=== PATIENT | female | born 1970 | race Caucasian/White ===

== ENCOUNTER → 2020-11-19 | Day surgery (SDC) | payer BC ==
[~2020-11-19] MED LIST: DEPO; LOSARTAN POTASS25 MG PO; NOVOLOG100 UNIT/1 SC; OR PHACO EYE KIT ONE; PREOP PHACO EYE KIT ONE
[2020-11-19 12:13] VITALS: BP 126/61
== END | disposition home or self-care (01) ==
LOC: OR 09:17
PROVIDERS: ATTEND Ophthalmology
DX: H25.11 Age-related nuclear cataract, right eye (principal); E10.39 Type 1 diabetes mellitus with other diabetic ophthalmic complication; Z79.4 Long term (current) use of insulin; Z83.3 Family history of diabetes mellitus; Z01.812 Encounter for preprocedural laboratory examination; Z20.822 Contact with and (suspected) exposure to COVID-19
CPT/HCPCS: 36415; 66984; 82948; U0002; V2632

== ENCOUNTER → 2020-12-17 | Day surgery (SDC) | payer BC ==
[2020-12-17 11:20] VITALS: BP 132/65
== END | disposition home or self-care (01) ==
LOC: OR 08:33
PROVIDERS: ATTEND Ophthalmology
DX: H25.12 Age-related nuclear cataract, left eye (principal); E10.9 Type 1 diabetes mellitus without complications; Z01.812 Encounter for preprocedural laboratory examination; Z20.822 Contact with and (suspected) exposure to COVID-19; Z79.4 Long term (current) use of insulin; Z87.891 Personal history of nicotine dependence
CPT/HCPCS: 36415; 66984; 81025; 82948; U0002; V2632